=== PATIENT | female | born 2005 | race Two or more races ===

== ENCOUNTER 2024-05-17 06:25 | Emergency (ER) | payer MEDICAID, SELFPAY ==
[2024-05-17 06:26] VITALS: BMI 28.5
[2024-05-17 06:32] VITALS: BP 126/85; PULSE 106; RESP 18; TEMP 36.4; O2SAT 96
--- NOTE | 2024-05-17 06:32 | XR_ITS ---
Examination: OB Transvaginal ultrasound of the pelvis, complete Technique: Transvaginal sonographic images pelvis performed using shore scale imaging Exam date and time: May 17, 2024 0713 hrs. Indications: Positive test May 16, 2024 with pelvic cramping and vaginal bleeding today Findings: Uterus 8.0 x 5.1 x 6.0 cm Possible intrauterine gestational sac 0.5 cm corresponds to 5 weeks 2 days gestational age No pole, no cardiac activity Right ovary 3.3 x 1.0 x 1.7 cm arterial flow small follicles as well as 2.0 x 1.1 x 1.3 cm cyst Free fluid in the right adnexal region Left ovary 2.3 x 1.6 x 1.8 cm arterial flow small follicles as well as 19 x 10 x 11 mm cyst Impression: Possible intrauterine gestational sac which corresponds to 5 weeks 2 days gestational age This possible gestational sac is abnormally low in position in the uterus,. No pole, no cardiac activity The overall appearances suspicious for spontaneous in progress Recommend short-term follow-up transvaginal pelvic sonography
[2024-05-17 09:08] LABS: Basophils # (Auto) 0.1 Thou/mm3 (0.0-0.2); Basophils % (Auto) 0 % (0-2.5); Eosinophils # (Auto) 0.2 Thou/mm3 (0.0-0.5); Eosinophils % (Auto) 1 % (0-10); Hematocrit 37.9 % (36.0-46.0); Immature Granulocytes % (Auto) 0 % (0-0); Immature Granulocytes Auto 0.05 Thou/mm3 (0.00-0.00); Lymphocytes # (Auto) 2.3 Thou/mm3 (1.0-4.8); Lymphocytes % (Auto) 15 % (10-50); Mean Corpuscular HGB Conc 34.3 g/dl (31.0-37.0); Mean Corpuscular Volume 85 fL (80-100); Monocytes # (Auto) 1.4 Thou/mm3 (0.0-0.8); Monocytes % (Auto) 9 % (0-12); Neutrophils # (Auto) 11.7 Thou/mm3 (1.8-7.7); Neutrophils % (Auto) 75 % (37-80); Nucleated Red Blood Cell % 0 /100 WBC (0); Platelet Count 344 Thou/mm3 (140-440); RDW Standard Deviation 43.7 fL (36.4-46.3); Red Blood Count 4.48 Miln/mm3 (4.00-5.20); White Blood Count 15.7 Thou/mm3 (3.6-11.0)
[2024-05-17 09:19] LABS: Alanine Aminotransferase 18 U/L (10-49); Albumin, Serum 5.1 gm/dL (3.5-5.0); Alkaline Phosphatase 81 U/L (46-116); Anion Gap 10 (7-16); Aspartate Amino Transferase 21 U/L (0-34); BUN/Creatinine Ratio 10 Ratio (12-20); Bilirubin,Total 0.6 mg/dL (0.3-1.2); Blood Urea Nitrogen 7 mg/dL (9-23); Calcium 9.7 mg/dL (8.3-10.6); Calcium (Corrected) 9.7 mg/dL (8.5-10.1); Carbon Dioxide 23.5 mMol/L (20.0-31.0); Chloride 105 mMol/L (98-107); Creatinine (Component) 0.7 mg/dL (0.6-1.3); Globulin 2.5 gm/dL (2.3-3.5); Glucose 79 mg/dL (74-106); Osmolality,Calculated 272 (275-295); Potassium 3.7 mMol/L (3.4-5.1); Sodium 138 mMol/L (136-145); Total Protein 7.6 gm/dL (5.7-8.2); eGFR > 60 See Note
[2024-05-17 09:47] LABS: Beta HCG,Quantitative 22927 mIU/mL (<5.0)
--- NOTE | 2024-05-17 09:57 | EDNOTE_ITS ---
<Statement entered by Kaleigh Rodriguez MD - 05/17/24 17:53> As co-signing physician, I was present and available for consult prn. I concur with the plan and care as documented by the midlevel provider. ED OB Contraction Preg RMI/HPI General Chief complaint: Vaginal Bleeding Stated complaint: VAG BLEEDING; + PREG TEST Time Seen by Provider: 05/17/24 06:31 Arrival date/time: 05/17/24 06:25 19-year-old female G2, presents emergency department complaint of vaginal bleeding patient reports she had a positive test Limitations: no limitations Related Data Allergies Allergy/AdvReac Type Severity Reaction Status Date / Time No Known Allergies Allergy Unverified 05/17/24 06:29 Review of Systems Review of Systems Systems Reviewed: All systems reviewed, normal except as documented Constitutional Constitutional: Reports system reviewed and no additional complaints, except as documented, Denies fever(s) and Denies headache(s) Eyes Eyes: Reports system reviewed and no additional complaints, except as documented and Denies blurry vision ENT Ears, Nose, Mouth, and Throat: Reports system reviewed and no additional complaints, except as documented, Denies headache(s), Denies nasal congestion and Denies nasal discharge Cardiovascular Cardiovascular: Reports system reviewed and no additional complaints, except as documented, Denies chest pain and Denies dyspnea Respiratory Respiratory: Reports system reviewed and no additional complaints, except as d ocumented, Denies chest congestion, Denies cough and Denies dyspnea Gastrointestinal Gastrointestinal: Reports system reviewed and no additional complaints, except as documented and Denies abdominal pain Genitourinary Genitourinary: Reports system reviewed and no additional complaints, except as documented and Reports abnormal vaginal bleeding Integumentary/Breasts Skin/Breast: Reports system reviewed and no additional complaints, except as documented and Denies rash Neurologic Neurologic: Reports system reviewed and no additional complaints, except as documented, Reports as per HPI and Denies headache(s) Past Medical History Past Medical History NEUROLOGIC: Negative Neurological Disorders CARDIAC: Negative Cardiac Disorders or Congestive Heart Failure RESPIRATORY: Negative Chronic Obstructive Pulmonary Disease (COPD) or Asthma GASTROINTESTINAL: Negative Gastrointestinal Disorders GENITOURINARY: Negative Genitourinary Disorders or Renal Disease REPRODUCTIVE: Negative Endometriosis, Pelvic Inflammatory Disease, Previous Pregnancies or Uterine Prolapse MUSCULOSKELETAL: Negative Musculoskeletal Disorders ENDOCRINE: Negative Endocrine Disorders, Diabetes Mellitus Type 1 or Diabetes Mellitus Type 2 HEMATOLOGIC: Negative Blood Disorders or Anemia OTHER HISTORY: Negative Hospitalization, Autoimmune Disease, Down Syndrome, Developmental Delay, Shingles or Falls Family History FAMILY HISTORY: Negative Family Psychiatric Problems, Family Respiratory Disorders, Family Cardiac Disorders, Family Gastrointestinal Problems, Family Cancer, Family Surgery or Family Anesthesia Reaction Social History SMOKING STATUS: Never smoker SECOND HAND EXPOSURE: No ED Exam General Limitations: Present no limitations General appearance: Present alert and in no apparent distress Head Head exam: Present atraumatic Eye Eye exam: Present normal appearance, PERRL and EOMI ENT ENT exam: Present normal exam, normal oropharynx and mucous membranes moist Neck Neck exam: Present normal inspection, full ROM and trachea midline Chest Chest inspection: Present normal inspection and symmetric chest wall rise Respiratory Respiratory exam: Present normal lung sounds bilaterally Cardiovascular Cardiovascular exam: Present regular rate, normal rhythm and normal heart sounds Abdominal Exam Abdominal exam: Present soft and normal bowel sounds; Absent distention, tenderness, guarding, rebound or rigidity Extremities Exam Extremities exam: Present normal inspection and full ROM Back Exam Back exam: Present normal inspection and full ROM Neurological Exam Neurological exam: Present alert, oriented X3 and CN II-XII intact Psychiatric Psychiatric exam: Present normal affect and normal mood Skin Skin exam: Present warm, dry, intact and normal color Course Quality Measures none Orders Category Date Time Status US OB transvaginal Stat Exams 05/17/24 06:32 Completed ABO/RH Type Stat Lab 05/17/24 08:15 Completed Beta HCG,Quantitative Stat Lab 05/17/24 08:15 Completed CBC Stat Lab 05/17/24 08:15 Completed Comprehensive Metabolic Panel Stat Lab 05/17/24 08:15 Completed Vital Signs Vital signs: Vital Signs Temperature 97.6 F 05/17/24 06:32 Pulse Rate 106 H 05/17/24 06:32 Respiratory Rate 18 05/17/24 06:32 Blood Pressure 126/85 H 05/17/24 06:32 Pulse Oximetry (%) 96 05/17/24 06:32 Oxygen Delivery Method Room Air 05/17/24 06:32 O2 saturation 96% room air within normal limits Vaginal Bleeding MDM Narrative MDM Narrative: 19-year-old female G2, presents emergency department complaint of vaginal bleeding patient reports she had a positive test On exam patient hemodynamically stable patient does not appear ill or toxic Lab work as well as ultrasound obtained Lab work is reassuring but ultrasound is not Explained to the patient that she needs to have a repeat ultrasound in 3 to 4 days as well as repeat lab work to document viability For emergent concerns patient struck to return immediately Patient data External records reviewed:: [facility] previous records Clinical information provided by:: patient Social determinants that could affect healthcare access:: none Patient has the following chronic illnesses:: None How is presenting disease/condition affected by chronic disease/condition?: no chronic disease Evaluation data The following diagnostics were reviewed and interpreted by me:: lab results and radiology exam(s) Lab and/or radiology exams considered but not ordered:: Labs radiology obtain Interpretation Summary: Reviewed by me Medications / Prescriptions Medications or Prescriptions considered but not ordered:: Given no meds Medication administrations:: No meds given Consultations Consultation(s) initiated? (list below): No Diagnosis Vaginal Bleeding Differential Diagnosis: missed and threatened Most likely diagnosis given after review of the tests above:: Threatened Admission Indicated Admission indicated?: not indicated Admission Request Was there a request for admission?: No Disposition Plan Disposition Plan: Discharge Discharge Attestation Discharge Attestation: The patient and all family members were given an opportunity to ask questions and understood the discharge instructions. Discharge instructions specifically effects, indications for sooner follow up or return to the emergency department, and the expected course of current diagnosis. Patient condition: Stable Discharge Plan Plan Patient Disposition: HOME (Self Care) Disposition Comment: Stable Prescriptions/Referrals Referrals: No Primary/Family,Physician [Primary Care Provider] - 05/18/24 Problem List Clinical Impression: Threatened Patient/Caregiver Discharge Instructions Education Materials: ED Possible Miscarriage ... Additional Instructions: Please have repeat lab work and ultrasound in 3 to 4 days for worsening symptoms or concerns return immediately Print Language: Luxembourgish Stand Alone Forms: Carol Ann Award Info., Work/School Release, Patient Portal Info Letter PA/REBECCA Supervising Physician CATERINA/REBECCA Supervising Physician: Dr. Rodriguez
== END 2024-05-17 10:03 | disposition home or self-care (01) ==
PROVIDERS: Nurse Practitioner Primary Care; Emergency Provider Emergency Medicine
DX: O20.0 Threatened abortion (principal); Z3A.01 Less than 8 weeks gestation of pregnancy
CPT/HCPCS: 36415; 76817; 80053; 84702; 85025; 86900; 86901; 99284

== ENCOUNTER 2024-08-15 16:18 | Emergency (ER) | payer MEDICAID, SELFPAY ==
[2024-08-15 16:19] VITALS: BMI 29.9
[2024-08-15 16:51] VITALS: BP 127/81; PULSE 92; RESP 18; TEMP 36.6; O2SAT 97
--- NOTE | 2024-08-15 16:52 | EKG_ITS ---
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
--- NOTE | 2024-08-15 16:52 | PD.EDRME ---
Rapid Medical Screening Exam E Arrival date/time: 08/15/24 16:18 19-year-old female with no known medical history presents to the emergency room with a chief complaint of left-sided arm numbness and tingling x 2 days. I have greeted and performed a focused initial assessment of this patient. A comprehensive ED assessment and evaluation of the patient, analysis of all test results, and completion of the medical decision making process will be conducted by additional ED providers. Chief Complaint: Dizziness Vital signs: Vital Signs Temperature 97.8 F 08/15/24 16:51 Pulse Rate 92 08/15/24 16:51 Respiratory Rate 18 08/15/24 16:51 Blood Pressure 127/81 08/15/24 16:51 Pulse Oximetry (%) 97 08/15/24 16:51 Oxygen Delivery Method Room Air 08/15/24 16:51 Vital signs reviewed by provider: Yes
[2024-08-15 17:13] LABS: Basophils # (Auto) 0.1 Thou/mm3 (0.0-0.2); Basophils % (Auto) 1 % (0-2.5); Eosinophils # (Auto) 0.2 Thou/mm3 (0.0-0.5); Eosinophils % (Auto) 2 % (0-10); Hematocrit 36.6 % (36.0-46.0); Hemoglobin 12.6 g/dL (12.0-16.0); Immature Granulocytes % (Auto) 0 % (0-0); Immature Granulocytes Auto 0.01 Thou/mm3 (0.00-0.00); Lymphocytes # (Auto) 2.8 Thou/mm3 (1.0-4.8); Lymphocytes % (Auto) 32 % (10-50); Mean Corpuscular HGB Conc 34.4 g/dl (31.0-37.0); Mean Corpuscular Hemoglobin 28.8 pg (25.0-35.0); Mean Corpuscular Volume 84 fL (80-100); Monocytes # (Auto) 0.8 Thou/mm3 (0.0-0.8); Monocytes % (Auto) 10 % (0-12); Neutrophils # (Auto) 4.9 Thou/mm3 (1.8-7.7); Neutrophils % (Auto) 56 % (37-80); Nucleated Red Blood Cell % 0 /100 WBC (0); Platelet Count 271 Thou/mm3 (140-440); RDW Standard Deviation 43.6 fL (36.4-46.3); Red Blood Count 4.37 Miln/mm3 (4.00-5.20); White Blood Count 8.7 Thou/mm3 (3.6-11.0)
[2024-08-15 17:18] LABS: Collection Type, Urine Clean Catch
[2024-08-15 17:26] LABS: INR 0.9 (0.9-1.3); Partial Thromboplastin Time 25.8 Seconds (22.0-36.0); Prothrombin Time 10.3 Seconds (9.0-12.2)
[2024-08-15 17:32] LABS: B-Type Natriuretic Peptide < 20 pg/mL (0-100)
[2024-08-15 17:33] LABS: Alanine Aminotransferase 18 U/L (10-49); Albumin, Serum 4.3 gm/dL (3.5-5.0); Albumin/Globulin Ratio 1.8 (1.2-2.2); Alkaline Phosphatase 86 U/L (46-116); Anion Gap 7 (7-16); Aspartate Amino Transferase 23 U/L (0-34); BUN/Creatinine Ratio 8 Ratio (12-20); Bilirubin,Total 0.6 mg/dL (0.3-1.2); Blood Urea Nitrogen 8 mg/dL (9-23); Carbon Dioxide 25.7 mMol/L (20.0-31.0); Chloride 107 mMol/L (98-107); Estimated Creatinine Clearance 77.4 mL/min (>60); Globulin 2.4 gm/dL (2.3-3.5); Glucose 82 mg/dL (74-106); Osmolality,Calculated 276 (275-295); Potassium 3.9 mMol/L (3.4-5.1); Sodium 140 mMol/L (136-145); Total Protein 6.7 gm/dL (5.7-8.2); Troponin I < 0.002 ng/mL (0.0-0.045); eGFR > 60 See Note
[2024-08-15 17:33] LABS: Bacteria,Urine Rare; Bilirubin,Urine Negative (Negative); Blood,Urine Negative (Negative); Clarity,Urine Clear (Clear/Hazy); Color,Urine Lt-Yellow (Lt Yel-Yel); Glucose, Urine Negative (Negative); Ketones,Urine Negative (Negative); Leukocyte Esterase,Urine Positive (Negative); Nitrite,Urine Negative (Negative); PH,Urine 6.5 (5.0-7.0); Protein,Urine Negative (Neg - Trace); RBC,Urine 3 /hpf (0-3); Specific Gravity,Urine 1.019 (1.001-1.035); Squamous Epithelial Cell,Urine 9 /hpf (0-5); Urobilinogen,Urine Negative mg/dL (0.0-1.0); WBC,Urine 4 /hpf (0-5)
[2024-08-15 17:36] LABS: Amphetamine/Methamp Scrn,U Negative (Negative); Barbiturate Screen,Urine Negative (Negative); Benzodiazepines Screen,Urine Negative (Negative); Benzoylecgonine Screen, Ur Negative (Negative); Fentanyl Screen,Urine Negative (Negative); Opiate Screen,Urine Negative (Negative); THC Screen,Urine Positive (Negative)
[2024-08-15 19:46] VITALS: BP 121/76; PULSE 87; RESP 20; TEMP 36.6; O2SAT 97
--- NOTE | 2024-08-15 20:42 | PD.EDDIZZY ---
ED Dizzyness RME/HPI General Chief Complaint: Dizziness Stated Complaint: TINGLING/VIBRATION ON L) ARM/SIDE, DIZZY X 1 WK Time Seen by Provider: 08/15/24 20:42 Arrival date/time: 08/15/24 16:18 RME / HPI RME / HPI Narrative: 08/15/24 16:18 19-year-old female with no known medical history presents to the emergency room with a chief complaint of left-sided arm numbness and tingling x 2 days. I have greeted and performed a focused initial assessment of this patient. A comprehensive ED assessment and evaluation of the patient, analysis of all test results, and completion of the medical decision making process will be conducted by additional ED providers. Dr. Rhoades?s Main ED Evaluation: 19yo female with no significant past medical history presents to the ED for a chief complaint of left arm tingling x 2 weeks. Patient states her episodes are intermittent, reporting it started after a shelf fell and hit the back of her head 2 weeks ago. She reports associated intermittent numbness down her left arm, left side, and left leg. She denies any N/V, weakness, weight loss/gain or any other associated symptoms. Denies any history of being . Denies being on any specific diet or any medications. No known allergies. Related Data Allergies Allergy/AdvReac Type Severity Reaction Status Date / Time No Known Allergies Allergy Verified 08/15/24 16:21 Review of Systems Review of Systems Systems Reviewed: All systems reviewed, normal except as documented Past Medical History Past Medical History NEUROLOGIC: Negative Neurological Disorders CARDIAC: Negative Cardiac Disorders or Congestive Heart Failure RESPIRATORY: Negative Chronic Obstructive Pulmonary Disease (COPD) or Asthma GASTROINTESTINAL: Negative Gastrointestinal Disorders GENITOURINARY: Negative Genitourinary Disorders or Renal Disease REPRODUCTIVE: Negative Endometriosis, Pelvic Inflammatory Disease, Previous Pregnancies or Uterine Prolapse MUSCULOSKELETAL: Negative Musculoskeletal Disorders ENDOCRINE: Negative Endocrine Disorders, Diabetes Mellitus Type 1 or Diabetes Mellitus Type 2 HEMATOLOGIC: Negative Blood Disorders or Anemia OTHER HISTORY: Negative Hospitalization, Autoimmune Disease, Down Syndrome, Developmental Delay, Shingles or Falls Family History FAMILY HISTORY: Negative Family Psychiatric Problems, Family Respiratory Disorders, Family Cardiac Disorders, Family Gastrointestinal Problems, Family Cancer, Family Surgery or Family Anesthesia Reaction Social History SMOKING STATUS: Never smoker SECOND HAND EXPOSURE: No ED Exam Narrative Physical exam: GENERAL APPEARANCE: alert and oriented x 4, well-developed, well-nourished, no acute distress VITALS: All vitals were reviewed and the pulse ox is 97% on room air, which is normal according to my interpretation. HEENT: Normocephalic, scalp contusion to the left parieto occipital scalp; pupils equal, round, reactive to light; EOMI; mucous membranes pink, moist; oropharynx clear NECK: Supple LUNGS: CTABL; no wheezes, no rales, no rhonchi HEART: Regular rate, regular rhythm; normal S1, S2; no murmurs ABDOMEN: non distended; normal BS; soft, no tenderness, no guarding, no rebound; no masses, no organomegaly, no hernia BACK: no CVA tenderness EXTREMITIES: atraumatic; no edema NEUROLOGIC: awake; alert and oriented x4; cranial nerves II-XII grossly intact; no focal sensory or motor deficits PSYCHIATRIC: appropriate mood and affect SKIN: warm, dry, normal color; no rashes Course Quality Measures none Orders Category Date Time Status EKG (ED ONLY) *Do not use* NOW Care 08/15/24 16:[address] head/brain wo con Stat Exams 08/15/24 20:51 Completed EKG (ED Only) Stat Exams 08/15/24 16:52 Draft B-Type Natriuretic Peptide Stat Lab 08/15/24 17:05 Completed CBC Stat Lab 08/15/24 17:05 Completed Comprehensive Metabolic Panel Stat Lab 08/15/24 17:05 Completed Drug Screen,Urine Stat Lab 08/15/24 17:14 Completed Magnesium Stat Lab 08/15/24 17:05 Completed Partial Thromboplastin Time Stat Lab 08/15/24 17:05 Completed Prothrombin Time with INR Stat Lab 08/15/24 17:05 Completed Troponin I Stat Lab 08/15/24 17:05 Completed Urinalysis Stat Lab 08/15/24 17:14 Completed Vital Signs Vital signs: Vital Signs Temperature 97.8 F 08/15/24 16:51 Pulse Rate 92 08/15/24 16:51 Respiratory Rate 18 08/15/24 16:51 Blood Pressure 127/81 08/15/24 16:51 Pulse Oximetry (%) 97 08/15/24 16:51 Oxygen Delivery Method Room Air 08/15/24 16:51 Dizziness MDM Narrative MDM Narrative:: Scribe Attestation: 08/15/24 - Chhaya Gamble, am scribing for and in the presence of Dr. Rhoades. 2224: Discussed results with the patient at bedside. Patient is stable to be discharged home. Patient data External records reviewed:: [facility] previous records (Per chart review, patient was seen here on 05/17/24 for threatened .) Clinical information provided by:: patient Social determinants that could affect healthcare access:: none Patient has the following chronic illnesses:: none How is presenting disease/condition affected by chronic disease/condition?: no chronic disease Evaluation data The following diagnostics were reviewed and interpreted by me:: lab results, radiology exam(s) and EKG tracing(s) Lab and/or radiology exams considered but not ordered:: none Interpretation Summary: CBC is normal, PT and INR are nornal, PTT is normal, CMP is normal, Troponin is normal, BNP is normal, UA is unremarkable, UDS is positive for marijuana, according to my interpretation. EKG done at 1700, NSR, rate of 83, normal axis, no ectopy, no acute ischemia, according to my interpretation. ------- [facility] Report Signed Patient: MEE DYKES Record#: [id number] Birthdate: 2005 Age/Sex: 19 / F Location: [facility] Attending Dr: Ordering Physician: Tu Rhoades MD Date of Service: 08/15/24 Procedure(s): CT head/brain wo con Accession Number(s): [id number] cc: Linus Duran MD; NO PRIMARY/FAMILY,PHYSICIAN; Tu Rhoades MD~ Examination: CT brain head without contrast. 2-D sagittal coronal reconstructions Date and time of exam:August 15, 2024, 212 hours INDICATIONS: Paresthesias left arm 1 week, history injury to the head 2 weeks ago CTDI: vol (mGy):44.5 DLP: (mGycm):826 Technique: Multiple CT axial sections of the brain have been obtained, 5 mm slice thickness. Contrast has not been administered. 2-D sagittal, coronal reconstructions have been obtained Low dose protocols were performed. One or more of the following dose reduction techniques were used; automated exposure control, adjustment of the mA and/or KV according to patient size, use of iterative reconstruction technique. Findings: No significant ventricular enlargement. Intra-axial or extra-axial hemorrhage density is not seen. No mass effect or midline shift Basal cisterns are not remarkable. Fourth ventricle is midline. Cranial vault intact. Impression: Negative for acute hemorrhage, mass effect or midline shift Dictated By: Linus Duran MD Signed By: <Electronically signed by Linus Duran MD in OV> 08/15/24 1581 Medications / Prescriptions Medications or Prescriptions considered but not ordered:: none Medication administrations:: none Consultations Consultation(s) initiated? (list below): No Diagnosis Dizziness Differential Diagnosis: other (electrolyte abnormality, ICH, TIA) Most likely diagnosis given after review of the tests above:: see clinical impression below Admission Indicated Admission indicated?: not indicated Explain why admission is indicated or not indicated:: No criteria for admission. Admission Request Was there a request for admission?: No Disposition Plan Disposition Plan: Discharge Discharge Attestation Discharge Attestation: The patient and all family members were given an opportunity to ask questions and understood the discharge instructions. Discharge instructions specifically effects, indications for sooner follow up or return to the emergency department, and the expected course of current diagnosis. Patient condition: Stable Discharge Plan Plan Patient Disposition: HOME (Self Care) Disposition Comment: Stable for discharge home Patient condition on transfer: Stable Prescriptions/Referrals Referrals: Segundo Arrington MD [Physician] - In 1 week Problem List Clinical Impression: Arm paresthesia, left Patient/Caregiver Discharge Instructions Discharge Activity: activity as tolerated Education Materials: ED Paraesthesias Additional Instructions: Please return to the emergency department if you have any worsening or any further medical problems and we will help you. Otherwise you should follow-up with your primary care doctor within the next several days I have given you the contact information for Dr Arrington. Dr. Huggins is our neurologist who is on-call for our emergency department. Please call the office and make an appointment and if you are still having symptoms greater than 48 hours from now you will be able to be seen in follow-up. Print Language: Polish Stand Alone Forms: Carol Ann Award Info., Patient Portal Info Letter
--- NOTE | 2024-08-15 20:51 | XR_ITS ---
Examination: CT brain head without contrast. 2-D sagittal coronal reconstructions Date and time of exam:August 15, 2024, 2127 hours INDICATIONS: Paresthesias left arm 1 week, history injury to the head 2 weeks ago CTDI: vol (mGy):44.5 DLP: (mGycm):826 Technique: Multiple CT axial sections of the brain have been obtained, 5 mm slice thickness. Contrast has not been administered. 2-D sagittal, coronal reconstructions have been obtained Low dose protocols were performed. One or more of the following dose reduction techniques were used; automated exposure control, adjustment of the mA and/or KV according to patient size, use of iterative reconstruction technique. Findings: No significant ventricular enlargement. Intra-axial or extra-axial hemorrhage density is not seen. No mass effect or midline shift Basal cisterns are not remarkable. Fourth ventricle is midline. Cranial vault intact. Impression: Negative for acute hemorrhage, mass effect or midline shift
== END 2024-08-15 22:42 | disposition home or self-care (01) ==
PROVIDERS: Nurse Practitioner Family; Emergency Provider Emergency Medicine
DX: R20.2 Paresthesia of skin (principal); R20.0 Anesthesia of skin
CPT/HCPCS: 36415; 70450; 80053; 80307; 81001; 83735; 83880; 84484; 85025; 85610; 85730; 93005; 99284

== ENCOUNTER 2025-03-31 12:27 | Observation (INO) | payer MEDICAID, SELFPAY ==
[2025-03-31] VITALS (30 sets, daily range): BP systolic 111; BP diastolic 65; PULSE 72–104; RESP 20–100; TEMP 36.5; O2SAT 92–100; BMI 27.6
[2025-03-31] MEDS: RINGERS LACTATED 1000 ML 1,000 ML 999 ML IV (13:12)
[2025-03-31] MEDS: ONDANSETRON INJ 2 MG/ML INJ 2 ML 4 MG IVP (13:16)
[2025-03-31] MEDS: cefTRIAXone/D5w 2gm 2 GM/50 ML BAG IV (14:04)
[2025-03-31 14:18] LABS: Collection Type, Urine Clean Catch
[2025-03-31 14:30] LABS: Basophils # (Auto) 0.1 Thou/mm3 (0.0-0.2); Basophils % (Auto) 0 % (0-2.5); Eosinophils # (Auto) 0.0 Thou/mm3 (0.0-0.5); Eosinophils % (Auto) 0 % (0-10); Hematocrit 38.6 % (36.0-46.0); Hemoglobin 13.0 g/dL (12.0-16.0); Immature Granulocytes Auto 0.15 Thou/mm3 (0.00-0.00); Lymphocytes # (Auto) 2.7 Thou/mm3 (1.0-4.8); Lymphocytes % (Auto) 15 % (10-50); Mean Corpuscular HGB Conc 33.7 g/dl (31.0-37.0); Mean Corpuscular Hemoglobin 30.3 pg (25.0-35.0); Mean Corpuscular Volume 90 fL (80-100); Monocytes # (Auto) 1.1 Thou/mm3 (0.0-0.8); Monocytes % (Auto) 6 % (0-12); Neutrophils # (Auto) 14.4 Thou/mm3 (1.8-7.7); Neutrophils % (Auto) 78 % (37-80); Nucleated Red Blood Cell # 0.00 Thou/mm3 (0.00-0.00); Nucleated Red Blood Cell % 0 /100 WBC (0); Platelet Count 269 Thou/mm3 (140-440); RDW Standard Deviation 43.4 fL (36.4-46.3); Red Blood Count 4.29 Miln/mm3 (4.00-5.20); White Blood Count 18.4 Thou/mm3 (3.6-11.0)
[2025-03-31 14:41] LABS: Bilirubin,Urine Negative (Negative); Blood,Urine Negative (Negative); Clarity,Urine Clear (Clear/Hazy); Color,Urine Lt-Yellow (Lt Yel-Yel); Glucose, Urine Negative (Negative); Ketones,Urine Trace (Negative); Leukocyte Esterase,Urine Negative (Negative); Nitrite,Urine Negative (Negative); PH,Urine 7.0 (5.0-7.0); Protein,Urine Negative (Neg - Trace); RBC,Urine 1 /hpf (0-3); Specific Gravity,Urine 1.007 (1.001-1.035); Squamous Epithelial Cell,Urine 8 /hpf (0-5); Urobilinogen,Urine Negative mg/dL (0.0-1.0); WBC,Urine 1 /hpf (0-5)
== END 2025-03-31 15:01 | disposition home or self-care (01) ==
PROVIDERS: Admitting Provider Obstetrics & Gynecology; Visit Provider Obstetrics & Gynecology
DX: O21.2 Late vomiting of pregnancy (principal); O26.892 Other specified pregnancy related conditions, second trimester; R51.9 Headache, unspecified; R42 Dizziness and giddiness; R68.83 Chills (without fever); Z3A.27 27 weeks gestation of pregnancy
CPT/HCPCS: 36415; 59025; 59899; 81001; 85025; 87086; 96374; J0696; J2405; J7120

== ENCOUNTER 2025-04-26 23:32 | Observation (INO) | payer MEDICAID, SELFPAY ==
[2025-04-26 23:49] VITALS: BP 112/60; PULSE 101; PULSE 96; O2SAT 98
[2025-04-26 23:52] VITALS: BP 112/60; PULSE 105; RESP 19; RESP 97; TEMP 36.2; BMI 29.0
[2025-04-26 23:54] VITALS: PULSE 97; O2SAT 99
[2025-04-26 23:59] VITALS: PULSE 98; O2SAT 100
[2025-04-27] VITALS (25 sets, daily range): PULSE 92–109; O2SAT 85–100
[2025-04-27 00:52] LABS: Collection Type, Urine Clean Catch
[2025-04-27 01:01] LABS: Bilirubin,Urine Negative (Negative); Blood,Urine Negative (Negative); Clarity,Urine Clear (Clear/Hazy); Color,Urine Colorless (Lt Yel-Yel); Glucose, Urine Negative (Negative); Ketones,Urine Negative (Negative); Leukocyte Esterase,Urine Negative (Negative); Nitrite,Urine Negative (Negative); PH,Urine 7.0 (5.0-7.0); Protein,Urine Negative (Neg - Trace); RBC,Urine 1 /hpf (0-3); Specific Gravity,Urine 1.003 (1.001-1.035); Squamous Epithelial Cell,Urine 1 /hpf (0-5); Urobilinogen,Urine Negative mg/dL (0.0-1.0); WBC,Urine 1 /hpf (0-5)
[2025-04-27 01:25] LABS: FFN Specimen Descripton Clr Colrless Aqueous; Fetal Fibronectin Negative (Negative)
== END 2025-04-27 02:25 | disposition home or self-care (01) ==
PROVIDERS: Admitting Provider Obstetrics & Gynecology; Visit Provider Obstetrics & Gynecology
DX: O47.03 False labor before 37 completed weeks of gestation, third trimester (principal); Z3A.33 33 weeks gestation of pregnancy
CPT/HCPCS: 59025; 59899; 81001; 81514; 82731